=== PATIENT | female | born 1950 | race Caucasian/White ===

== ENCOUNTER 2019-06-30 15:27 | Emergency (ER) | payer MEDICARE ==
[~2019-06-30] VITALS: Ht 152.4 cm; Wt 57.5 kg
[2019-06-30 16:12] LABS: BASOPHILS % (AUTO) 0.6 % (0-1); EOSINOPHILS # (AUTO) 0.1 X10'3 (0-0.9); EOSINOPHILS % (AUTO) 2.7 % (0-6); HEMATOCRIT 38.8 % (35.0-45.0); HEMOGLOBIN 13.4 g/dl (12.0-16.0); LYMPHOCYTES # (AUTO) 0.8 X10'3 (1.1-4.8); LYMPHOCYTES % (AUTO) 15.3 % (21-51); MEAN CORPUSCULAR HEMOGLOBIN 30.8 PG (27.0-31.0); MEAN CORPUSCULAR HGB CONC 34.4 g/dL (33.0-36.5); MEAN CORPUSCULAR VOLUME 89.5 FL (78-98); MEAN PLATELET VOLUME 7.1 FL (7.4-10.4); MONOCYTES # (AUTO) 0.5 X10'3 (0-0.9); MONOCYTES % (AUTO) 10.3 % (2-12); NEUTROPHILS # (AUTO) 3.6 X10'3 (1.8-7.7); NEUTROPHILS % (AUTO) 71.1 % (42-75); PLATELET COUNT 188 X10'3 (140-440); RED BLOOD COUNT 4.34 X10'6 (4.20-5.60); RED CELL DISTRIBUTION WIDTH 13.1 % (11.5-14.5); WHITE BLOOD COUNT 5.1 X10'3 (4.5-11.0)
[2019-06-30 16:24] LABS: ALANINE AMINOTRANSFERASE 107 U/L (12-78); ALBUMIN/GLOBULIN RATIO 1.5 (1.1-1.5); ALKALINE PHOSPHATASE 50 IU/L (46-116); ANION GAP 12 (8-16); ASPARTATE AMINO TRANSFERASE 82 U/L (10-37); BILIRUBIN,TOTAL 0.4 MG/DL (0.1-1.0); BLOOD UREA NITROGEN 12 MG/DL (7-18); BUN/CREATININE RATIO 11.7 (6.6-38.0); CALCIUM 10.2 MG/DL (8.5-10.1); CHLORIDE 104 MMOL/L (99-107); CREATININE 1.03 MG/DL (0.40-0.90); GLUCOSE 135 MG/DL (70-104); POTASSIUM 3.4 MMOL/L (3.5-5.1); SODIUM 143 MMOL/L (135-145); TOTAL CARBON DIOXIDE 26.6 MMOL/L (24-32); TOTAL PROTEIN 8.3 G/DL (6.4-8.2); eGFR 53 ML/MIN
[2019-06-30 17:46] LABS: D-DIMER 0.42 MG/L FEU (0-0.50)
[2019-06-30] MEDS ORDERED: ipratropium/albuterol 3ml nebule NEB ONE (18:00)
[2019-06-30] MEDS ORDERED: normal saline 1000ml 1,000 ML IV ONE ×2 (18:00)
[2019-06-30] MEDS ORDERED: iohexol 350MG/ML 100ml bottle IV ONE (18:02)
--- NOTE | 2019-06-30 18:10 | NUR ---
SPOKE TO BESSIE WEN REGARDING LABS AND PATIENTS WHEEZING
--- NOTE | 2019-06-30 18:27 | NUR ---
NEBS IN PROGRESS
--- NOTE | 2019-06-30 18:29 | NUR ---
PATIENT STATES THAT SHE FEELS LIKE "IT IS EASIER TO BREATHE AFTER THE DUONEBS"
[2019-06-30] MEDS ORDERED: ALLO100T PO (18:36)
[2019-06-30] MEDS ORDERED: OMEP40CA13 PO (18:38)
[2019-06-30] MEDS ORDERED: IBAN150T16 PO (18:39)
[2019-06-30] MEDS ORDERED: FENO145T38 PO (18:40)
[2019-06-30] MEDS ORDERED: MAGN400C PO (18:41)
[2019-06-30] MEDS ORDERED: CYAN50008 PO (18:43)
[2019-06-30] MEDS ORDERED: CHOL200026 PO (18:44)
--- NOTE | 2019-06-30 18:49 | NUR ---
PLACED ON 2LITER O2 SPO2 91-94%
--- NOTE | 2019-06-30 18:50 | NUR ---
PATIETN TAKES TWO BP MEDICATIONS AMLOPIDINE AND LOSARTAN, UNSURE OF DOSES PATIENT TAKES OXTYBUTININ DAILY INSURE OF DOSE
--- NOTE | 2019-06-30 19:44 | NUR ---
discussed vitals with alberta lerner
[2019-06-30] MEDS ORDERED: PRED20TA PO (20:13)
[2019-06-30] MEDS ORDERED: DOXY100C2 PO (20:13)
[2019-06-30] MEDS ORDERED: BENZ-16 PO (20:19)
[2019-06-30] MEDS ORDERED: ibuprofen tablet 400 MG TABLET PO ONE (20:40)
[2019-06-30 21:08] VITALS: BP 141/88
== END 2019-06-30 21:05 | disposition home or self-care (01) ==
LOC: ER 15:28
DX: J40 Bronchitis, not specified as acute or chronic (principal); Z88.0 Allergy status to penicillin; Z79.2 Long term (current) use of antibiotics; Z79.899 Other long term (current) drug therapy
CPT/HCPCS: 36415; 71045; 71275; 80053; 83605; 85025; 85379; 87040; 93005; 94640; 99284; J7030; Q9967; 94760